=== PATIENT | male | born 1940 | race Caucasian/White ===

== ENCOUNTER 2017-11-13 07:20 | Emergency (ER) | payer MEDICARE, OTHER ==
[~2017-11-13] VITALS: Ht 172.7 cm; Wt 100.0 kg
[~2017-11-13 07:20] MED LIST: ASPI81TA82 PO; ATOR20TA PO; CANA100T PO; DILTCD240 PO; LISI2.5T55 PO; METF500 PO; RIVA20 PO
[2017-11-13 07:24] VITALS: BP 209/97; PULSE 118; RESP 16; TEMP 98.2; O2SAT 95
[2017-11-13 07:59] VITALS: BP 168/90; PULSE 118; RESP 18; O2SAT 95
[2017-11-13] MEDS ORDERED: DILT240C44 PO (08:03)
[2017-11-13] MEDS ORDERED: ATOR10TA15 PO (08:03)
[2017-11-13] MEDS ORDERED: ASPI-516 CHEW (08:03)
[2017-11-13] MEDS ORDERED: METF500T PO (08:03)
[2017-11-13] MEDS ORDERED: LISI30TA4 PO (08:03)
[2017-11-13 08:13] LABS: AUTOMATED NEUTROPHIL # 5.1 TH/MM3 (1.8-7.7); BASOPHIL % 0.6 % (0.0-2.0); EOSINOPHIL # 0.3 TH/MM3 (0-0.4); EOSINOPHIL % 3.4 % (0.0-4.0); HEMATOCRIT 49.7 % (39.0-51.0); HEMOGLOBIN 17.3 GM/DL (13.0-17.0); LYMPH % 25.5 % (9.0-44.0); MEAN CELL VOLUME 91.1 FL (80.0-100.0); MEAN CORPUSCULAR HEMOGLOBIN 31.8 PG (27.0-34.0); MEAN CORPUSCULAR HGB CONC 34.9 % (32.0-36.0); MONO % 7.9 % (0.0-8.0); MONOCYTE # 0.6 TH/MM3 (0-0.9); NEUT % 62.6 % (16.0-70.0); PLATELET COUNT 188 TH/MM3 (150-450); RED BLOOD COUNT 5.45 MIL/MM3 (4.50-5.90); RED CELL DISTRIBUTION WIDTH 12.6 % (11.6-17.2)
[2017-11-13] MEDS ORDERED: SODIUM CHLORIDE 0.9% FLUSH 10 ML FLUSH IVF PRN (08:15)
[2017-11-13] MEDS ORDERED: SODIUM CHLORID 0.9% 500 ML INJ 500 ML IV ONE ×2 (08:15→09:30)
[2017-11-13] MEDS ORDERED: DILTIAZEM HCL 90 MG TAB PO ONE (08:15)
[2017-11-13 08:21] LABS: CHLORIDE 99 MEQ/L (98-107); SODIUM (NA) 134 MEQ/L (136-145)
[2017-11-13 08:24] LABS: CALCIUM 9.1 MG/DL (8.5-10.1)
[2017-11-13 08:25] LABS: ALBUMIN 3.5 GM/DL (3.4-5.0); BICARBONATE 27.2 MEQ/L (21.0-32.0); INTERNATIONAL NORMALIZED RATIO 1.1 RATIO; PROTHROMBIN TIME - PATIENT 11.4 SEC (9.8-11.6)
[2017-11-13] MEDS ORDERED: DILTIAZEM-CD 240 MG CAP ER PO ONE (08:30)
--- NOTE | 2017-11-13 08:34 | RADRPT ---
EXAM DATE: 11/13/2017 8:29 AM EDT AGE/SEX: 77 years / Male INDICATIONS: Weakness, dizziness. CLINICAL DATA: This is the patient's initial encounter. Patient reports that signs and symptoms have been present for 1 week and indicates a pain score of 0/10. MEDICAL/SURGICAL HISTORY: Hypertension. Diabetes mellitus type II. Hypercholesterolemia. None . COMPARISON: [facility], CHEST SINGLE AP, 11/19/2014. . FINDINGS: A single AP view of the chest demonstrates the lungs to be symmetrically aerated without evidence of mass, infiltrate or effusion. Mild central interstitial prominence is noted. The cardiomediastinal c ontours are unremarkable. Osseous structures are intact. CONCLUSION: Stable chest with mild chronic appearing interstitial lung changes but no evidence of acute airspace disease, congestion or pleural effusions.. Electronically signed by: Al Mccarthy MD 11/13/2017 8:33 AM EDT
[2017-11-13 08:35] LABS: ALKALINE PHOSPHATASE 65 U/L (45-117); ALT (GPT) 44 U/L (12-78); AST (GOT) 31 U/L (15-37); BLOOD UREA NITROGEN 10 MG/DL (7-18); CREATININE 0.94 MG/DL (0.60-1.30); GLOMERULAR FILTRATION RATE 78 ML/MIN (>89); GLUCOSE,RANDOM 417 MG/DL (74-106); TOTAL BILIRUBIN ADULT 0.9 MG/DL (0.2-1.0); TOTAL PROTEIN 8.1 GM/DL (6.4-8.2); TROPONIN I LESS THAN 0.02 NG/ML (0.02-0.05)
--- NOTE | 2017-11-13 09:09 | PD ---
HPI Chief Complaint: Dizziness Time Seen by Provider: 07:37 Travel History International Travel<30 days: No Contact w/Intl Traveler<30days: No Traveled to known affect area: No History of Present Illness HPI Patient is a 77-year-old male who comes in complaining of dizziness. He says he has had this feeling of lightheadedness for the past week. It is accompanied by increased thirst and urination. Does have history of diabetes. He says he has been taking his medications as prescribed. He denies having any chest pain or shortness of breath. Denies any headache, blurred vision, nausea or vomiting. He has a history of atrial fibrillation, but does not follow with a title investigator. He says he sees his primary doctor every 3 months. He denies fever or chills. He says he has been drinking more water than usual. Severity is mild to moderate. PFSH Past Medical History Arthritis: No Asthma: No Autoimmune Disease: No Blood Disorders: No Heart Rhythm Problems: Yes Cancer: No Cardiovascular Problems: Yes High Cholesterol: Yes Chemotherapy: No Chest Pain: No Congestive Heart Failure: No COPD: No Cerebrovascular Accident: No Diabetes: Yes Patient Takes Glucophage: Yes Diminished Hearing: No Endocrine: Yes GERD: No Glaucoma: No Genitourinary: No Headaches: No Hepatitis: No Hiatal Hernia: No Hypertension: Yes Immune Disorder: No Kidney Stones: No Musculoskeletal: No Neurologic: No Psychiatric: No Reproductive: No Respiratory: Yes Migraines: No Myocardial Infarction: No Radiation Therapy: No Renal Failure: No Seizures: No Sleep Apnea: No Thyroid Disease: No Ulcer: No Influenza Vaccination: No Past Surgical History Surgical History: No Previous Surgery Abdominal Surgery: No AICD: No Appendectomy: No Arteriovenous Shunt: No Cardiac Surgery: No Cholecystectomy: No Ear Surgery: No Endocrine Surgery: No Eye Surgery: No Genitourinary Surgery: No Gynecologic Surgery: No Insulin Pump: No Joint Replacement: No Oral Surgery: No Pacemaker: No Thoracic Surgery: No Other Surgery: No Social History Alcohol Use: No Tobacco Use: No Substance Use: No Allergies-Medications (Allergen,Severity, Reaction): Coded Allergies: No Known Allergies (Verified Allergy, Unknown, 11/13/17) Reported Meds & Prescriptions Reported Meds & Active Scripts Active Reported Metformin (Metformin HCl) 500 Mg Tab 500 Mg PO BIDPC Diltiazem CD 24 HR 240 Mg Caper 240 Mg PO DAILY Atorvastatin (Atorvastatin Calcium) 10 Mg Tab 0 PO HS Lisinopril 30 Mg Tab 50 Mg PO DAILY Aspirin 81 Mg Chew 81 Mg CHEW DAILY Review of Systems Except as stated in HPI: all other systems reviewed are Neg General / Constitutional: No: Fever, Chills Eyes: No: Blurred Vision HENT: Positive: Lightheadedness, No: Headaches Cardiovascular: No: Chest Pain or Discomfort Respiratory: No: Shortness of Breath Gastrointestinal: No: Nausea, Vomiting Musculoskeletal: No: Myalgias, Edema Skin: No Rash, No Change in Pigmentation Neurologic: Positive: Dizziness Endocrine: Positive: Polyuria, Polydipsia Physical Exam Narrative GENERAL: Awake and alert, no acute distress. SKIN: Focused skin assessment warm/dry. No wounds or signs of infection. HEAD: Atraumatic. Normocephalic. EYES: Pupils equal and round and reactive. No scleral icterus. Extraocular movements intact. ENT: Mucous membranes pink and moist. NECK: Trachea midline. No JVD. CARDIOVASCULAR: Regular rate and rhythm. No murmur appreciated. RESPIRATORY: No accessory muscle use. Clear to auscultation. Breath sounds equal bilaterally. GASTROINTESTINAL: Abdomen soft, non-tender, nondistended. MUSCULOSKELETAL: No obvious deformities. No clubbing. No cyanosis. No edema. NEUROLOGICAL: Awake and alert. No obvious cranial nerve deficits. Motor grossly within normal limits. Normal speech. Normal cerebellar function testing. PSYCHIATRIC: Appropriate mood and affect; insight and judgment normal. Data Data Last Documented VS Vital Signs Date Time Temp Pulse Resp B/P (MAP) Pulse Ox O2 Delivery O2 Flow Rate FiO2 11/13/17 09:22 119 15 150/86 (107) 96 Room Air 11/13/17 07:24 98.2 Orders Orders Complete Blood Count With Diff (11/13/17 08:04) Comprehensive Metabolic Panel (11/13/17 08:04) Troponin I (11/13/17 08:04) Act Partial Throm Time (Ptt) (11/13/17 08:04) Prothrombin Time / Inr (Pt) (11/13/17 08:04) Urinalysis - C+S If Indicated (11/13/17 08:04) Chest, Single Ap (11/13/17 08:04) Ecg Monitoring (11/13/17 08:04) Iv Access Insert/Monitor (11/13/17 08:04) Oximetry (11/13/17 08:04) Sodium Chloride 0.9% Flush (Ns Flush) (11/13/17 08:15) Sodium Chlorid 0.9% 500 Ml Inj (Ns 500 M (11/13/17 08:15) Diltiazem (Cardizem) (11/13/17 08:15) Diltiazem Cd (Cardizem Cd) (11/13/17 08:30) Sodium Chlorid 0.9% 500 Ml Inj (Ns 500 M (11/13/17 09:30) Insulin Human Regular Inj (Novolin R Inj (11/13/17 09:45) Ed Discharge Order (11/13/17 10:34) Labs Laboratory Tests Test 11/13/17 07:50 11/13/17 09:30 White Blood Count 8.0 TH/MM3 Red Blood Count 5.45 MIL/MM3 Hemoglobin 17.3 GM/DL Hematocrit 49.7 % Mean Corpuscular Volume 91.1 FL Mean Corpuscular Hemoglobin 31.8 PG Mean Corpuscular Hemoglobin Concent 34.9 % Red Cell Distribution Width 12.6 % Platelet Count 188 TH/MM3 Mean Platelet Volume 9.0 FL Neutrophils (%) (Auto) 62.6 % Lymphocytes (%) (Auto) 25.5 % Monocytes (%) (Auto) 7.9 % Eosinophils (%) (Auto) 3.4 % Basophils (%) (Auto) 0.6 % Neutrophils # (Auto) 5.1 TH/MM3 Lymphocytes # (Auto) 2.0 TH/MM3 Monocytes # (Auto) 0.6 TH/MM3 Eosinophils # (Auto) 0.3 TH/MM3 Basophils # (Auto) 0.0 TH/MM3 CBC Comment DIFF FINAL Differential Comment Prothrombin Time 11.4 SEC Prothromb Time International Ratio 1.1 RATIO Activated Partial Thromboplast Time 26.2 SEC Blood Urea Nitrogen 10 MG/DL Creatinine 0.94 MG/DL Random Glucose 417 MG/DL Total Protein 8.1 GM/DL Albumin 3.5 GM/DL Calcium Level 9.1 MG/DL Alkaline Phosphatase 65 U/L Aspartate Amino Transf (AST/SGOT) 31 U/L Alanine Aminotransferase (ALT/SGPT) 44 U/L Total Bilirubin 0.9 MG/DL Sodium Level 134 MEQ/L Potassium Level 4.0 MEQ/L Chloride Level 99 MEQ/L Carbon Dioxide Level 27.2 MEQ/L Anion Gap 8 MEQ/L Estimat Glomerular Filtration Rate 78 ML/MIN Troponin I LESS THAN 0.02 NG/ML Urine Collection Type CLEAN CATCH Urine Color YELLOW Urine Turbidity CLEAR Urine pH 5.0 Urine Specific Payne 1.010 Urine Protein NEG mg/dL Urine Glucose (UA) 1000 OR GREATER mg/dL Urine Ketones 40 mg/dL Urine Occult Blood NEG Urine Nitrite NEG Urine Bilirubin NEG Urine Urobilinogen 0.2 MG/DL Urine Leukocyte Esterase NEG Urine RBC 0-3 /hpf Urine Squamous Epithelial Cells 0-5 /hpf Microscopic Urinalysis Comment CULT NOT INDICATED Urine Collection Time 09:30 [facility] Medical Decision Making Medical Screen Exam Complete: Yes Emergency Medical Condition: Yes Medical Record Reviewed: Yes Interpretation(s) ECGs there is sinus tachycardia at a rate of 118, similar to previous ECG. Differential Diagnosis dehydration vs electrolyte abnormalities vs hyperglycemia Narrative Course Patient is a 77 year old male who comes in complaining of dizziness with increased thirst and urination. Exam shows no neurologic abnormalities. IV established, labs sent. Labs show an elevated blood sugar to 417. Other labs within normal limits. Patient reports improvement of symptoms with IV fluids. Glucose level improved to 338. Patient given small dose of insulin. He is advised to follow up with his doctor. Advised to return to the ED as needed for any worsening symptoms. Diagnosis Primary Impression: Dizziness Patient Instructions: Diabetic Hyperglycemia (ED), Dizziness (ED), General Instructions Additional Instructions: Follow-up with your primary care doctor. Increase her water intake. Do not take your Cardizem when he got home as you had a dose this morning already. Return to the ED as needed for any worsening symptoms. Disposition: 01 DISCHARGE HOME Condition: Stable Cynthia Musa MD November 13, 2017 09:09
[2017-11-13 09:22] VITALS: BP 150/86; PULSE 119; RESP 15; O2SAT 96
[2017-11-13 09:34] LABS: BILIRUBIN, URINE NEG (NEG); BLOOD, URINE NEG (NEG); GLUCOSE,URINE 1000 OR GREATER mg/dL (NEG); KETONE, URINE 40 mg/dL (NEG); NITRITE,URINE NEG (NEG); URINE COLOR YELLOW (YELLW/STRAW); URINE LEUKOCYTE ESTERASE NEG (NEG)
[2017-11-13 09:45] LABS: RBC, URINE 0-3 /hpf (0-3); SQUAMOUS EPITHELIAL CELL URINE 0-5 /hpf (0-5)
[2017-11-13] MEDS ORDERED: INSULIN HUMAN REGULAR 1,000 UNITS/10 ML VIAL IV PUSH ONE (09:45)
[2017-11-13 10:43] VITALS: BP 151/94
--- NOTE | 2017-11-14 07:29 | EKG ---
Date Performed: 11/13/2017 Time Performed: 07:33:48 PTAGE: 77 years EKG: Possible supraventricular tachyarrhythmia ARM LEADS REVERSED ABNORMAL ECG PREVIOUS TRACING : 11/19/2014 09.34 DOCTOR: Thiago [place] Interpretating Date/Time 11/14/2017 07:25:37
== END 2017-11-13 10:49 | disposition home or self-care (01) ==
LOC: PHED 07:20
DX: R42 Dizziness and giddiness (principal); E11.65 Type 2 diabetes mellitus with hyperglycemia; I48.91 Unspecified atrial fibrillation; I10 Essential (primary) hypertension; R94.31 Abnormal electrocardiogram [ECG] [EKG]
CPT/HCPCS: 71045; 80053; 81001; 84484; 85025; 85610; 85730; 93005; 96361; 96374; 99285; J1815; J7040